=== PATIENT | male | born 1985 | race Caucasian/White ===

== ENCOUNTER 2017-07-15 09:07 | Emergency (ER) | payer OTHER ==
[~2017-07-15] VITALS: Ht 182.9 cm; Wt 81.7 kg
[~2017-07-15 09:07] MED LIST: HYDACE5 PO; RXTOBROPSO OP
[2017-07-15] MEDS ORDERED: Bactrim Ds Tab1 EACH PO (10:04)
[2017-07-15] MEDS ORDERED: Norco 5-325 Ta1 EACH PO (10:10)
== END 2017-07-15 10:36 | disposition home or self-care (01) ==
LOC: ER 09:07
DX: L03.012 Cellulitis of left finger (principal); F17.200 Nicotine dependence, unspecified, uncomplicated; Z91.048 Other nonmedicinal substance allergy status
CPT/HCPCS: 10060; 99283